=== PATIENT | female | born 1995 | race African-American/Black ===

== ENCOUNTER 2016-12-09 19:42 | Inpatient (IN) | payer SELFPAY ==
[~2016-12-09] VITALS: Ht 157.5 cm; Wt 53.5 kg
[2016-12-09] MEDS ORDERED: ONDANSETRON PF 4 MG/2 ML VIAL. IV ONE (21:30)
[2016-12-09] MEDS ORDERED: IV NORMAL SALINE 1000ML BAG 1,000 ML IV ONE (21:30)
--- NOTE | 2016-12-09 21:33 | ED.ADGEN ---
Past Medical History Past Medical History: No Pertinent History Past Surgical History: No Surgical History Alcohol Use: None Drug Use: None Adult General Chief Complaint Chief Complaint: DIZZY/LIGHT HEADED HPI HPI Patient is a 21 year old woman, who presents emergency department with multiple complaints. No significant past no history. Patient states that she began experiencing abdominal cramping today, located mostly in the middle of her abdomen, and thought that it was because she was going to begin her menses. She states she has been experiencing some white mucousy discharge for the past several days. Denies any sexual activity, or concern for STI exposures, any possibility of . Patient states that she began experiencing chills, nausea, has vomited "20 times", today. Food and fluid, no bile. Denies pain in the upper abdomen, denies diarrhea, denies sick contacts or exposures, denies injuries, denies any ingestions. Review of Systems Review of Systems Constitutional: Denies fever, complaining of chills. Eyes: Denies change in visual acuity. [] HENT: Denies nasal congestion or sore throat. [] Respiratory: Denies cough or shortness of breath. [] Cardiovascular: Denies chest pain or edema. [] GI: Cramping suprapubic abdominal and pelvic pain, associated nausea and vomiting, no diarrhea. : Denies dysuria. [] Musculoskeletal: Denies back pain or joint pain. [] Integument: Denies rash. [] Neurologic: Denies headache, focal weakness or sensory changes. [] Endocrine: Denies polyuria or polydipsia. [] Lymphatic: Denies swollen glands. [] Psychiatric: Denies depression or anxiety. [] Current Medications Current Medications Current Medications Medications (Trade) Dose Ordered Sig/Tala Start Time Stop Time Status Last Admin Dose Admin Fentanyl Citrate 25 mcg 25 mcg PRN Q15MIN PRN 12/09/16 21:30 12/10/16 21:29 12/10/16 01:11 25 MCG Info (Do NOT chart on this entry -- for MONITORING) 1 each PRN DAILY PRN 12/10/16 01:45 12/12/16 01:44 Iohexol (Omnipaque 300 Mg/ml) 75 ml 1X ONCE 12/10/16 01:45 12/10/16 01:46 DC 12/10/16 01:52 75 ML Ondansetron HCl (Zofran) 4 mg 1X ONCE 12/09/16 21:30 12/09/16 21:33 DC 12/09/16 21:47 4 MG Sodium Chloride (Iv Sodium Chloride 0.9% 1000ml Bag) 1,000 ml @ 1,000 mls/hr 1X ONCE 12/10/16 00:45 12/10/16 01:44 DC 12/10/16 01:10 1,000 MLS/HR Allergies Allergies Allergies Coded Allergies Type Severity Reaction Last Updated Verified No Known Drug Allergies 12/09/16 No Physical Exam Physical Exam Constitutional: Well developed, well nourished, mild distress secondary to discomfort, non-toxic appearance. [] HENT: Normocephalic, atraumatic, bilateral external ears normal, oropharynx moist, no oral exudates, nose normal. [] Eyes: PERRLA, EOMI, conjunctiva normal, no discharge. [] Neck: Normal range of motion, no tenderness, supple, no stridor. [] Cardiovascular:Heart rate regular rhythm, no murmur, S1, S2, rubs or gallops. [] Lungs & Thorax: Bilateral breath sounds clear to auscultation, no wheezing, rhonchi, rales. No chest wall tenderness or crepitus. [] Abdomen: Bowel sounds normal, soft, tenderness to palpation in the suprapubic region and right lower quadrant, no rebound, rigidity, no guarding, no masses, no pulsatile masses. [] Skin: Warm, dry, no erythema, no rash. [] Back: No tenderness, no CVA tenderness. [] Extremities: No tenderness, no cyanosis, no clubbing, ROM intact, no edema. [] Neurologic: Alert and oriented X 3, normal motor function, normal sensory function, no focal deficits noted. [] Psychologic: Affect normal, judgement normal, mood normal. [] Current Patient Data Vital Signs Vital Signs Date Time Temp Pulse Resp B/P Pulse Ox O2 Delivery O2 Flow Rate FiO2 12/10/16 01:11 16 12/09/16 20:00 99.0 72 140/72 100 Room Air 99.0 Lab Values Laboratory Tests Test 12/09/16 19:53 12/09/16 21:42 12/09/16 22:18 White Blood Count 8.9x10^3/uL (4.0-11.0) Red Blood Count 4.98x10^6/uL (3.50-5.40) Hemoglobin 12.8g/dL (12.0-15.5) Hematocrit 39.9% (36.0-47.0) Mean Corpuscular Volume 80fL (79-100) Mean Corpuscular Hemoglobin 26pg (25-35) Mean Corpuscular Hemoglobin Concent 32g/dL (31-37) Red Cell Distribution Width 14.5% (11.5-14.5) Platelet Count 256x10^3/uL (140-400) Neutrophils (%) (Auto) 89% (31-73) H Lymphocytes (%) (Auto) 9% (24-48) L Monocytes (%) (Auto) 2% (0-9) Eosinophils (%) (Auto) 0% (0-3) Basophils (%) (Auto) 0% (0-3) Neutrophils # (Auto) 8.0x10^3uL (1.8-7.7) H Lymphocytes # (Auto) 0.8x10^3/uL (1.0-4.8) L Monocytes # (Auto) 0.1x10^3/uL (0.0-1.1) Eosinophils # (Auto) 0.0x10^3/uL (0.0-0.7) Basophils # (Auto) 0.0x10^3/uL (0.0-0.2) Segmented Neutrophils % 85% (35-66) H Band Neutrophils % 6% (0-9) Lymphocytes % 7% (24-48) L Monocytes % 2% (0-10) Platelet Estimate Adequate (ADEQUATE) Poikilocytosis Slight Sodium Level 142mmol/L (136-145) Potassium Level 3.4mmol/L (3.5-5.1) L Chloride Level 104mmol/L (98-107) Carbon Dioxide Level 25mmol/L (21-32) Anion Gap 13 (6-14) Blood Urea Nitrogen 8mg/dL (7-20) Creatinine 0.7mg/dL (0.6-1.0) Estimated GFR (Cockcroft-Gault) 127.8 BUN/Creatinine Ratio 11 (6-20) Glucose Level 123mg/dL (70-99) H Calcium Level 9.7mg/dL (8.5-10.1) Total Bilirubin 0.6mg/dL (0.2-1.0) Aspartate Amino Transferase (AST) 27U/L (15-37) Alanine Aminotransferase (ALT) 67U/L (14-59) H Alkaline Phosphatase 67U/L (46-116) Total Protein 8.4g/dL (6.4-8.2) H Albumin 4.6g/dL (3.4-5.0) Albumin/Globulin Ratio 1.2 (1.0-1.7) Lipase 115U/L (73-393) Influenza Type A Antigen Negative (NEGATIVE) Influenza Type B Antigen Negative (NEGATIVE) Urine Collection Type Unknown Urine Color Yellow Urine Clarity Clear Urine pH 6.5 Urine Specific Truman 1.025 Urine Protein Negativemg/dL (NEG-TRACE) Urine Glucose (UA) Negativemg/dL (NEG) Urine Ketones (Stick) >=80mg/dL (NEG) Urine Blood Large (NEG) Urine Nitrite Negative (NEG) Urine Bilirubin Negative (NEG) Urine Urobilinogen Dipstick 0.2mg/dL (0.2 mg/dL) Urine Leukocyte Esterase Negative (NEG) Urine RBC 11-20/HPF (0-2) Urine WBC Occ/HPF (0-4) Urine Squamous Epithelial Cells Few/LPF Urine Amorphous Sediment Present/HPF Urine Bacteria Moderate/HPF (0-FEW) Urine Mucus Mod/LPF Urine Test Negative (NEG) Laboratory Tests 12/09/16 19:53 Laboratory Tests 12/09/16 19:53 Microbiology 12/09/16 Wet Prep - Final, Complete EKG EKG ECG: Rhythm strip: Sinus rhythm, heart rate 65 bpm, no ectopy. As interpreted by me. [] Radiology/Procedures Radiology/Procedures [] [facility] [address] [place] [address] IMAGING REPORT Signed PATIENT: QUOC HOROWITZ ACCOUNT: [id number] : 1995 LOCATION: ER AGE: 21 SEX: F EXAM STATUS: REG ER ORD. PHYSICIAN: JENN RODRIGUEZ DO REASON: abdominal pain/nausea/vomiting r/o appy PROCEDURE: ABDOMEN LTD PROCEDURE Limited abdominal ultrasound dated 12/09/2016. HISTORY Suprapubic pain for 1 day. TECHNIQUE Limited and imaging performed to localize the appendix. COMPARISON None. FINDINGS Sonographic imaging performed in the right lower quadrant in order to localize the appendix. The appendix is not clearly identified. No free fluid in the right lower quadrant. There is some pain with transducer pressure. There are few borderline enlarged lymph nodes in the ileocolic region. IMPRESSION - The appendix is not clearly identified. Appendicitis cannot be excluded based on this exam. - No free fluid or mass. There are few borderline enlarged lymph nodes in the ileocolic region, nonspecific. Electronically signed by: Gavin Cortes (Dec 10, 2016 00:21:31) DICTATED and SIGNED BY: GAVIN CORTES MD DATE: 12/10/16 002 CC: JENN RODRIGUEZ DO; NO PCP ~ Impressions: [facility] [address] [place] [address] IMAGING REPORT Signed PATIENT: QUOC HOROWITZ ACCOUNT: [id number] : 1995 LOCATION: ER AGE: 21 SEX: F EXAM STATUS: REG ER ORD. PHYSICIAN: JENN RODRIGUEZ DO REASON: abd pain/n/v PROCEDURE: ABD PELV W/ IV CONTRAST ONLY PROCEDURE CT abdomen and pelvis with contrast dated 12/10/2016. HISTORY Abdominal pain, nausea and vomiting. TECHNIQUE Contiguous axial imaging of the abdomen and pelvis performed after the administration of 75 cc Omnipaque 300.Exposure: One or more of the following individualized dose reduction techniques were utilized for this exam: 1. Automated exposure control. 2. Adjustment of the mA and/or kV according to patient size. 3. Use of iterative reconstruction technique. COMPARISON None. FINDINGS Limited images of lung bases are clear. Heart size within normal limits. No pleural or pericardial effusion. Liver, spleen, pancreas, adrenal glands, gallbladder and kidneys are unremarkable. No hydronephrosis. Unopacified GI tract normal in caliber and contour. The appendix is not clearly identified. No inflammatory stranding in the right lower quadrant. The no free fluid or lymphadenopathy. Abdominal aorta normal in caliber. Images of pelvis show nondistended urinary bladder. Uterus and adnexa unremarkable. Small amount of free pelvic fluid. No pelvic lymphadenopathy. Bone window show no acute findings. IMPRESSION - No acute abnormality of abdomen or pelvis. - The appendix is not clearly identified. No inflammatory stranding in the right lower quadrant. - Trace amount of free pelvic fluid, nonspecific. Electronically signed by: Gavin Cortes (Dec 10, 2016 02:01:33) Course & Med Decision Making Course & Med Decision Making Pertinent Labs and Imaging studies reviewed. (See chart for details) Patient with suprapubic and right lower quadrant region, having chills in the ED , uncomfortable in appearance. Received pain medication, IV fluids, antiemetics , a solution of vomiting. Pelvic examination performed. Patient did not have CMT , or concerning findings, she was noted to have clue cells. Due to persistent pain, with slight left shift and bandemia, ultrasound obtained, to evaluate pelvis and right lower quadrant for potential appendicitis. Unfortunately although patient tenderness in this area on examination, adequate visualization of the appendix not established. I did discuss this with the patient, who remains uncomfortable this time after multiple doses of medication, and is agreeable to proceeding with CT of abdomen and pelvis for further elucidation of her symptoms, after risk of radiation versus benefits discussed. CT abdomen and pelvis performed, but again was unable to adequately visualize the appendix , although no evidence of inflammation was noted in this region. Patient is known present in the emergency department for several hours, and has had repeat abdominal CT examination, she remains tender in the suprapubic region and right lower quadrant, although her symptoms may be due to a viral infection, or other non-surgical etiology, at this time due to persistent discomfort, and lab clarification on imaging, patient is agreeable plan for initial hospital for continued observation, and repeat abdominal evaluation. I did discuss findings as above with Dr. Perrin of internal medicine, patient accepted to his service as an observation admission with plan as above, consultation placed for Dr. Sands tunnel surgery. Dragon Disclaimer Dragon Disclaimer This electronic medical record was generated, in whole or in part, using a voice recognition dictation system. Departure Impression: Primary Impression: Abdominal pain Disposition: ADMITTED INPATIENT Admitting Physician: Jennifer Perrin Condition: IMPROVED JENN RODRIGUEZ DO Dec 09, 2016 21:32
[2016-12-09 21:35] LABS: BASO % 0 % (0-3); EOS % 0 % (0-3); HEMATOCRIT 39.9 % (36.0-47.0); HEMOGLOBIN 12.8 g/dL (12.0-15.5); LYMPH # 0.8 x10^3/uL (1.0-4.8); LYMPH % 9 % (24-48); MEAN CORPUSCULAR HEMOGLOBIN 26 pg (25-35); MEAN CORPUSCULAR HGB CONC 32 g/dL (31-37); MEAN CORPUSCULAR VOLUME 80 fL (79-100); MONO % 2 % (0-9); NEUT % 89 % (31-73); PLATELET COUNT 256 x10^3/uL (140-400); RED BLOOD COUNT 4.98 x10^6/uL (3.50-5.40); RED CELL DISTRIBUTION WIDTH 14.5 % (11.5-14.5); WHITE BLOOD COUNT 8.9 x10^3/uL (4.0-11.0)
[2016-12-09 21:42] LABS: CALCIUM 9.7 mg/dL (8.5-10.1); CREATININE 0.7 mg/dL (0.6-1.0); GFR 127.8; POTASSIUM 3.4 mmol/L (3.5-5.1)
[2016-12-09] MEDS: FENTANYL PF 100 MCG/2 ML VIAL. IV PRN (21:47)
[2016-12-09 21:48] LABS: ALBUMIN 4.6 g/dL (3.4-5.0); ALBUMIN/GLOBULIN RATIO 1.2 (1.0-1.7); TOTAL BILIRUBIN 0.6 mg/dL (0.2-1.0); TOTAL PROTEIN 8.4 g/dL (6.4-8.2)
[2016-12-09 21:55] LABS: PLT ESTIMATE ADEQUATE (ADEQUATE); POIKILOCYTOSIS SLIGHT
[2016-12-09 22:19] LABS: OBC FLU VALID
[2016-12-09 22:40] LABS: NEG OBC UR NEG; POS OBC UR POS
[2016-12-09 22:53] LABS: BILIRUBIN,URINE NEGATIVE (NEG); GLUCOSE,URINE NEGATIVE (NEG); NITRITE,URINE NEGATIVE (NEG); PH,URINE 6.5; PROTEIN,URINE NEGATIVE (NEG-TRACE); UROBILINOGEN,URINE 0.2 mg/dL (0.2 mg/dL)
[2016-12-09 23:10] LABS: BACTERIA,URINE MODERATE /HPF (0-FEW); SQUAMOUS EPITHELIAL CELL,UR FEW /LPF; WBC,URINE OCC /HPF (0-4)
--- NOTE | 2016-12-10 00:23 | RAD ---
PROCEDURE Limited abdominal ultrasound dated 12/09/2016. HISTORY Suprapubic pain for 1 day. TECHNIQUE Limited and imaging performed to localize the appendix. COMPARISON None. FINDINGS Sonographic imaging performed in the right lower quadrant in order to localize the appendix. The appendix is not clearly identified. No free fluid in the right lower quadrant. There is some pain with transducer pressure. There are few borderline enlarged lymph nodes in the ileocolic region. IMPRESSION - The appendix is not clearly identified. Appendicitis cannot be excluded based on this exam. - No free fluid or mass. There are few borderline enlarged lymph nodes in the ileocolic region, nonspecific. Electronically signed by: Gavin Cortes (Dec 10, 2016 00:21:31)
[2016-12-10] MEDS: FENTANYL PF 100 MCG/2 ML VIAL. IV PRN ×2 (00:35→01:11)
[2016-12-10] MEDS ORDERED: IV NORMAL SALINE 1000ML BAG 1,000 ML IV ONE (00:45)
[2016-12-10] MEDS ORDERED: CONTRAST GIVEN MC PRN (01:45)
[2016-12-10] MEDS ORDERED: IOHEXOL 300 MG/ML 75 ML VIAL IV ONE (01:45)
--- NOTE | 2016-12-10 02:03 | RAD ---
PROCEDURE CT abdomen and pelvis with contrast dated 12/10/2016. HISTORY Abdominal pain, nausea and vomiting. TECHNIQUE Contiguous axial imaging of the abdomen and pelvis performed after the administration of 75 cc Omnipaque 300.Exposure: One or more of the following individualized dose reduction techniques were utilized for this exam: 1. Automated exposure control. 2. Adjustment of the mA and/or kV according to patient size. 3. Use of iterative reconstruction technique. COMPARISON None. FINDINGS Limited images of lung bases are clear. Heart size within normal limits. No pleural or pericardial effusion. Liver, spleen, pancreas, adrenal glands, gallbladder and kidneys are unremarkable. No hydronephrosis. Unopacified GI tract normal in caliber and contour. The appendix is not clearly identified. No inflammatory stranding in the right lower quadrant. The no free fluid or lymphadenopathy. Abdominal aorta normal in caliber. Images of pelvis show nondistended urinary bladder. Uterus and adnexa unremarkable. Small amount of free pelvic fluid. No pelvic lymphadenopathy. Bone window show no acute findings. IMPRESSION - No acute abnormality of abdomen or pelvis. - The appendix is not clearly identified. No inflammatory stranding in the right lower quadrant. - Trace amount of free pelvic fluid, nonspecific. Electronically signed by: Gavin Cortes (Dec 10, 2016 02:01:33)
[2016-12-10] MEDS ORDERED: ONDANSETRON PF 4 MG/2 ML VIAL. IV PRN ×2 (03:15→08:56)
[2016-12-10] MEDS ORDERED: KETOROLAC 15 MG/ML VIAL. IV PRN ×2 (03:15→09:00)
[2016-12-10] MEDS ORDERED: ACETAMINOPHEN 325 MG TABLET. PO PRN (03:15)
[2016-12-10 04:07] VITALS: BP 109/61
[2016-12-10] MEDS: MORPHINE SULFATE 4 MG/ML DISP.SYRIN. IV PRN ×2 (04:45→20:15)
--- NOTE | 2016-12-10 04:51 | ACF ---
Admission Forms Criteria ABDOMINAL PAIN Clinical Indications for Admission to Inpatient Care (Place 'X' for any and all applicable criteria): Admission is indicated for ANY ONE of the following(1)(2)(3)(4)(5): [X]I. Inpatient admission required rather than observation care (Also use Abdominal Pain: Observation Care, as appropriate) because of ANY ONE of the following: [ ]a) Severe pain requiring acute inpatient management [X]b) Identification of etiology/finding that requires inpatient care (eg, aortic dissection, free air) [ ]c) Absent bowel sounds with complete ileus(6) [ ]d) Suspected toxic megacolon [ ]e) Severe electrolyte abnormalities requiring inpatient care [ ]f) High fever or infection requiring inpatient admission as indicated by ANY ONE of following(7)(8): [ ] i) Appropriate outpatient or observational care antimicrobial treatment unavailable, not effective, or not feasible [ ] ii) Documented bacteremia [ ] iii) Temperature > 104.9 degrees F (oral) [ ] iv) T >103.1 F (oral) or < 96.8 F(rectal) that does not respond to all emergency treatment measures [ ]g) Signs of intestinal obstruction [B] [ ]h) Hemodynamic instability [ ]i) IV fluid to replace significant ongoing losses (greater than 3 L/m2 per day) (12)(13) [ ]j) Percutaneous or open drainage (eg, abscess, biliary tract ) procedures [ ]k) Parenteral nutrition regimen that must be implemented on inpatient basis [ ]l) Other condition,treatment or monitoring requiring inpatient admission. [ ]II. Peritoneal signs present [ ]III. Surgery needed that cannot be performed on an ambulatory basis. [ ]IV. Evaluation requires patient to not eat or drink for extended period ( eg, more than 24 hours). [ ]V. Contraindications and/or Inappropriate clinical situations for Observational Care in patients with abdominal pain, when ANY ONE of the following is required: [ ]a) Thorough evaluation is required to prevent catastrophic events due to delays in diagnosing (e.g.Mesenteric ischemia) 1,3 [ ]b) Patient with severe pathology or with chronic symptoms unlikely to improve in the ED stay (3) [ ]. General contraindications and/or Inappropriate clinical situations for Observational Care in patients with abdominal pain, when ANY ONE of the following is required: [ ]a) Prediction of prolongation of LOS based on ANY ONE of the following may be considered as a contraindication for observational care 2, 3, 4, 5, 6, 7, 8, 9, 10, 11 [ ]i) Age > 65 yrs. [ ]ii) Patient arriving by ambulance [ ]iii) Patient with high acuity [ ]iv) Patient requiring vital sign monitoring [ ]v) Patient on IV medication [ ]b) Systolic blood pressures 180mmHg 3,12 [ ]c) Patient with altered mental status including delirium and other alteration of consciousness, (3) [ ]d) Patient whose discharge disposition will be to a long term home or rehabilitation home should not be managed in Emergency Department Observation Unit. CMS rule requires 3 days hospital stay before such placement.3,13 [ ]e) Patient with failure to thrive due to broad array of etiologies 3,16,17 [ ]f) Inability to ambulate 3,14 Extended stay beyond goal length of stay may be needed for(2)(3): [ ]a) Persistent abdominal pain with suspected intra-abdominal process [ ]b) Diagnosed condition requiring continued stay (e.g., pancreatitis, complicated diverticulitis) [ ]c) Surgery (e.g., colectomy) The original [facility] content created by [employer] has been revised. The portions of the content which have been revised are identified through the use of italic text or in bold, and [facility] has neither reviewed nor approved the modified material.All other unmodified content is copyright [facility]. Please see references footnoted in the original [facility] edition 2016 Admission Criteria Met?: Yes MAXWELL BARRERA Dec 10, 2016 04:51
[2016-12-10 07:00] VITALS: BP 104/64
[2016-12-10] MEDS ORDERED: POTASSIUM CHLORIDE 20MEQ 50 ML IV ONE (09:00)
[2016-12-10] MEDS ORDERED: FENTANYL PF 100 MCG/2 ML VIAL. IV PRN (09:00)
[2016-12-10 10:46] VITALS: BP 97/69
[2016-12-10] MEDS: IV NORMAL SALINE 1000ML BAG 1,000 ML IV SCH ×2 (12:12→17:38)
[2016-12-10] MEDS: METRONIDAZOLE 500mg PREMIX 100 ML IV SCH ×2 (12:12→20:39)
--- NOTE | 2016-12-10 12:28 | PDOC1 ---
History and Physical Date of Admission Date of Admission DATE: 12/10/16 TIME: 12:21 Identification/Chief Complaint Chief Complaint abd pain Source Source: Caregiver, Chart review, Patient History of Present Illness History of Present Illness 21 y.o AA female, no past medical, acute onset lower abd pain and also motions to her R side, though she was having her period, never happened before. Accompanied by emesis, no fevers, no change in BM CT and US shows non full visualization of appendix but could be early appy? ALso clue cells on UA...or vag swab?, asymptomatic, no pruritus, dysuria GS consulted PAin more tolerable HAs been NPO LAst pain med was 7 hrs ago Past Medical History Cardiovascular: No pertinent hx Pulmonary: No pertinent hx GI: No pertinent hx Heme/Onc: No pertinent hx Hepatobiliary: No pertinent hx Psych: No pertinent hx Rheumatologic: No pertinent hx Infectious disease: No pertinent hx ENT: No pertinent hx Renal/: No pertinent hx Endocrine: No pertinent hx Dermatology: No pertinent hx Past Surgical History Past Surgical History: No pertinent history Family History Family History: No Significant Social History Smoke: No ALCOHOL: none Drugs: None Current Problem List Problem List Problems Medical Problems: (1) Abdominal pain Status: Acute Problems: Current Medications Current Medications Current Medications Sodium Chloride (Iv Sodium Chloride 0.9% 1000ml Bag) 1,000 ml @ 1,000 mls/hr 1X ONCE IV Last administered on 12/09/16 21:20; Start 12/09/16 at 21:30; Stop 12/09/16 at 22:29; Status DC Ondansetron HCl (Zofran) 4 mg 1X ONCE IV Last administered on 12/09/16 21:47; Start 12/09/16 at 21:30; Stop 12/09/16 at 21:33; Status DC Fentanyl Citrate 25 mcg 25 mcg PRN Q15MIN PRN IV PAIN GREATER THAN 3/10 Last administered on 12/10/16 01:11; Start 12/09/16 at 21:30; Stop 12/10/16 at 08:58; Status DC Sodium Chloride (Iv Sodium Chloride 0.9% 1000ml Bag) 1,000 ml @ 1,000 mls/hr 1X ONCE IV Last administered on 12/10/16 01:10; Start 12/10/16 at 00:45; Stop 12/10/16 at 01:44; Status DC Iohexol (Omnipaque 300 Mg/ml) 75 ml 1X ONCE IV Last administered on 12/10/16 01:52; Start 12/10/16 at 01:45; Stop 12/10/16 at 01:46; Status DC Info (Do NOT chart on this entry -- for MONITORING) 1 each PRN DAILY PRN MC SEE COMMENTS; Start 12/10/16 at 01:45; Stop 12/12/16 at 01:44 Ondansetron HCl (Zofran) 4 mg PRN Q8HRS PRN IV NAUSEA/VOMITING; Start 12/10/16 at 03:15; Stop 12/10/16 at 08:58; Status DC Morphine Sulfate 4 mg PRN Q2HR PRN IV PAIN Last administered on 12/10/16 04:45 ; Start 12/10/16 at 03:15; Stop 12/11/16 at 03:14 Acetaminophen (Tylenol) 650 mg PRN Q4HRS PRN PO FEVER; Start 12/10/16 at 03:15; Stop 12/11/16 at 03:14 Ketorolac Tromethamine (Toradol) 10 mg PRN Q6HRS PRN IV PAIN; Start 12/10/16 at 03:15; Stop 12/10/16 at 08:58; Status DC Metronidazole (Metrogel) 1 ashly QHS VG ; Start 12/10/16 at 21:00; Stop 12/10/16 at 21:00; Status DC Ketorolac Tromethamine (Toradol) 30 mg PRN Q6HRS PRN IV PAIN; Start 12/10/16 at 09:00; Stop 12/15/16 at 08:59 Ondansetron HCl 4 mg 4 mg PRN Q6HRS PRN IV NAUSEA/VOMITING; Start 12/10/16 at 08 :56 Metronidazole (FLAGYL 500Mmg PREMIX) 100 ml @ 100 mls/hr BID IV ; Start at 09:00 Fentanyl Citrate 50 mcg 50 mcg PRN Q2HR PRN IV PAIN; Start 12/10/16 at 09:00 Potassium Chloride 50 ml @ 50 mls/hr 1X ONCE IV ; Start 12/10/16 at 09:00; Stop 12/10/16 at 09:30; Status DC Sodium Chloride 1,000 ml @ 100 mls/hr Q10H IV ; Start 12/10/16 at 09:00 Potassium Chloride (KCl Premix 10meq) 100 ml @ 100 mls/hr Q1H IV ; Start at 09:30; Stop 12/10/16 at 11:29; Status DC Allergies Allergies: Coded Allergies: No Known Drug Allergies (Unverified , 12/09/16) ROS General: No: Appetite, Chills, Fatigue, Malaise, Night Sweats, Other PSYCHOLOGICAL ROS: No: Anxiety, Behavioral Disorder, Concentration difficultie , Decreased libido, Depression, Disorientation, Hallucinations, Hostility, Irritablity, Memory difficulties, Mood Swings, Obsessive thoughts, Other, Physical abuse, Sexual abuse, Sleep disturbances, Suicidal ideation Eyes: No Blurry vision, No Decreased vision, No Double vision, No Dry eyes, No Excessive tearing, No Eye Pain, No Itchy Eyes, No Loss of vision, No Other, No Photophobia, No Scotomata, No Uses contacts, No Uses glasses HEENT: No: Epistaxis, Heacaches, Hearing change, Nasal congestion, Nasal discharge, Oral lesions, Other, Sinus pain, Sneezing, Snoring, Sore Throat, Tinnitus, Vertigo, Visual Changes, Vocal changes Hematological and Lymphatic: No: Bleeding Problems, Blood Clots, Blood Transfusions, Brusing, Night Sweats, Other, Pallor, Swollen Lymph Nodes ENDOCRINE: No: Breast Changes, Galactorrhea, Hair Pattern Changes, Hot Flashes , Malaise/lethargy, Mood Swings, Other, Palpitations, Polydipsia/polyuria, Skin Changes, Temperature Intolerance, Unexpected Weight Changes Breast: No New/Changing Breast Lumps, No Nipple changes, No Nipple discharge, No Other Respiratory: No: Cough, Hemoptysis, Orthopnea, Other, Pleuritic Pain, SOB with excertion, Shortness of breath, Sputum Changes, Stridor, Tachypnea, Wheezing Cardiovascular: No Chest Pain, No Edema, No Lt Headedness, No Orthopnea, No Other, No Palpitations, No Paroxysmal Noc. Dyspnea Gastrointestinal: Yes Abdominal Pain, Yes Nausea, Yes Vomiting Genitourinary: No , No , No , No , No , No , No , No Discharge, No Dysuria, No Flank Pain, No Frequency, No Hematuria, No Incontinence, No Other, No Pain, No Retention, No Urgency Musculoskeletal: No Gait Disturbance, No Joint Pain, No Joint Stiffness, No Joint Swelling, No Muscle Pain, No Muscular Weakness, No Other, No Pain In:, No Swelling In: Neurological: No Behavorial Changes, No Bowel/Bladder ControlChng, No Confusion , No Dizziness, No Gait Disturbance, No Headaches, No Impaired Coord/balance, No Memory Loss, No Numbness/Tingling, No Other, No Seizures, No Speech Problems , No Tremors, No Visual Changes, No Weakness Skin: No Acne, No Dry Skin, No Eczema, No Hair Changes, No Lumps, No Mole Changes, No Mottling, No Nail Changes, No Other, No Pruritus, No Rash, No Skin Lesion Changes Physical Exam General: Alert, Oriented X3, Cooperative, No acute distress HEENT: PERRLA Lungs: Clear to auscultation, Normal air movement Heart: S1S2, RRR, no thrills, no rubs Cardiovascular: S1, S2 Breasts: Normal, Rt breast nml w/o mass, Lt breast nml w/o mass, Nipples normal Abdomen: Soft, Other (veryv mild tenderness, R side on deep palp) Male Genitals Exam: normal genitalia Rectal Exam: not examined PELVIC: Nml ext genitalia Extremities: No clubbing, No cyanosis, No edema, Normal pulses, No tenderness/ swelling Skin: No rashes, No breakdown, No significant lesion Neuro: Normal gait, Normal speech, Strength at 5/5 X4 ext, Normal tone, Sensation intact, Cranial nerves 3-12 NL, Reflexes 2+ Psych/Mental Status: Mental status NL, Mood NL Vitals Vitals Vital Signs Date Time Temp Pulse Resp B/P Pulse Ox O2 Delivery O2 Flow Rate FiO2 12/10/16 10:46 97.9 63 18 97/69 98 Room Air 97.9 Labs Labs Laboratory Tests Test 12/09/16 19:53 12/09/16 21:42 12/09/16 22:18 White Blood Count 8.9x10^3/uL (4.0-11.0) Red Blood Count 4.98x10^6/uL (3.50-5.40) Hemoglobin 12.8g/dL (12.0-15.5) Hematocrit 39.9% (36.0-47.0) Mean Corpuscular Volume 80fL (79-100) Mean Corpuscular Hemoglobin 26pg (25-35) Mean Corpuscular Hemoglobin Concent 32g/dL (31-37) Red Cell Distribution Width 14.5% (11.5-14.5) Platelet Count 256x10^3/uL (140-400) Neutrophils (%) (Auto) 89% (31-73) Lymphocytes (%) (Auto) 9% (24-48) Monocytes (%) (Auto) 2% (0-9) Eosinophils (%) (Auto) 0% (0-3) Basophils (%) (Auto) 0% (0-3) Neutrophils # (Auto) 8.0x10^3uL (1.8-7.7) Lymphocytes # (Auto) 0.8x10^3/uL (1.0-4.8) Monocytes # (Auto) 0.1x10^3/uL (0.0-1.1) Eosinophils # (Auto) 0.0x10^3/uL (0.0-0.7) Basophils # (Auto) 0.0x10^3/uL (0.0-0.2) Segmented Neutrophils % 85% (35-66) Band Neutrophils % 6% (0-9) Lymphocytes % 7% (24-48) Monocytes % 2% (0-10) Platelet Estimate Adequate (ADEQUATE) Poikilocytosis Slight Sodium Level 142mmol/L (136-145) Potassium Level 3.4mmol/L (3.5-5.1) Chloride Level 104mmol/L (98-107) Carbon Dioxide Level 25mmol/L (21-32) Anion Gap 13 (6-14) Blood Urea Nitrogen 8mg/dL (7-20) Creatinine 0.7mg/dL (0.6-1.0) Estimated GFR (Cockcroft-Gault) 127.8 BUN/Creatinine Ratio 11 (6-20) Glucose Level 123mg/dL (70-99) Calcium Level 9.7mg/dL (8.5-10.1) Total Bilirubin 0.6mg/dL (0.2-1.0) Aspartate Amino Transf (AST/SGOT) 27U/L (15-37) Alanine Aminotransferase (ALT/SGPT) 67U/L (14-59) Alkaline Phosphatase 67U/L (46-116) Total Protein 8.4g/dL (6.4-8.2) Albumin 4.6g/dL (3.4-5.0) Albumin/Globulin Ratio 1.2 (1.0-1.7) Lipase 115U/L (73-393) Influenza Type A Antigen Negative (NEGATIVE) Influenza Type B Antigen Negative (NEGATIVE) Urine Collection Type Unknown Urine Color Yellow Urine Clarity Clear Urine pH 6.5 Urine Specific [place] 1.025 Urine Protein Negativemg/dL (NEG-TRACE) Urine Glucose (UA) Negativemg/dL (NEG) Urine Ketones (Stick) >=80mg/dL (NEG) Urine Blood Large (NEG) Urine Nitrite Negative (NEG) Urine Bilirubin Negative (NEG) Urine Urobilinogen Dipstick 0.2mg/dL (0.2 mg/dL) Urine Leukocyte Esterase Negative (NEG) Urine RBC 11-20/HPF (0-2) Urine WBC Occ/HPF (0-4) Urine Squamous Epithelial Cells Few/LPF Urine Amorphous Sediment Present/HPF Urine Bacteria Moderate/HPF (0-FEW) Urine Mucus Mod/LPF Urine Test Negative (NEG) Laboratory Tests Test 12/09/16 19:53 12/09/16 21:42 12/09/16 22:18 White Blood Count 8.9x10^3/uL (4.0-11.0) Red Blood Count 4.98x10^6/uL (3.50-5.40) Hemoglobin 12.8g/dL (12.0-15.5) Hematocrit 39.9% (36.0-47.0) Mean Corpuscular Volume 80fL (79-100) Mean Corpuscular Hemoglobin 26pg (25-35) Mean Corpuscular Hemoglobin Concent 32g/dL (31-37) Red Cell Distribution Width 14.5% (11.5-14.5) Platelet Count 256x10^3/uL (140-400) Neutrophils (%) (Auto) 89% (31-73) Lymphocytes (%) (Auto) 9% (24-48) Monocytes (%) (Auto) 2% (0-9) Eosinophils (%) (Auto) 0% (0-3) Basophils (%) (Auto) 0% (0-3) Neutrophils # (Auto) 8.0x10^3uL (1.8-7.7) Lymphocytes # (Auto) 0.8x10^3/uL (1.0-4.8) Monocytes # (Auto) 0.1x10^3/uL (0.0-1.1) Eosinophils # (Auto) 0.0x10^3/uL (0.0-0.7) Basophils # (Auto) 0.0x10^3/uL (0.0-0.2) Segmented Neutrophils % 85% (35-66) Band Neutrophils % 6% (0-9) Lymphocytes % 7% (24-48) Monocytes % 2% (0-10) Platelet Estimate Adequate (ADEQUATE) Poikilocytosis Slight Sodium Level 142mmol/L (136-145) Potassium Level 3.4mmol/L (3.5-5.1) Chloride Level 104mmol/L (98-107) Carbon Dioxide Level 25mmol/L (21-32) Anion Gap 13 (6-14) Blood Urea Nitrogen 8mg/dL (7-20) Creatinine 0.7mg/dL (0.6-1.0) Estimated GFR (Cockcroft-Gault) 127.8 BUN/Creatinine Ratio 11 (6-20) Glucose Level 123mg/dL (70-99) Calcium Level 9.7mg/dL (8.5-10.1) Total Bilirubin 0.6mg/dL (0.2-1.0) Aspartate Amino Transf (AST/SGOT) 27U/L (15-37) Alanine Aminotransferase (ALT/SGPT) 67U/L (14-59) Alkaline Phosphatase 67U/L (46-116) Total Protein 8.4g/dL (6.4-8.2) Albumin 4.6g/dL (3.4-5.0) Albumin/Globulin Ratio 1.2 (1.0-1.7) Lipase 115U/L (73-393) Influenza Type A Antigen Negative (NEGATIVE) Influenza Type B Antigen Negative (NEGATIVE) Urine Collection Type Unknown Urine Color Yellow Urine Clarity Clear Urine pH 6.5 Urine Specific [place] 1.025 Urine Protein Negativemg/dL (NEG-TRACE) Urine Glucose (UA) Negativemg/dL (NEG) Urine Ketones (Stick) >=80mg/dL (NEG) Urine Blood Large (NEG) Urine Nitrite Negative (NEG) Urine Bilirubin Negative (NEG) Urine Urobilinogen Dipstick 0.2mg/dL (0.2 mg/dL) Urine Leukocyte Esterase Negative (NEG) Urine RBC 11-20/HPF (0-2) Urine WBC Occ/HPF (0-4) Urine Squamous Epithelial Cells Few/LPF Urine Amorphous Sediment Present/HPF Urine Bacteria Moderate/HPF (0-FEW) Urine Mucus Mod/LPF Urine Test Negative (NEG) VTE Prophylaxis Ordered VTE Prophylaxis Devices: Yes VTE Pharmacological Prophylaxi: Yes Assessment/Plan Assessment/Plan 1. Abdominal pain, difftls include possibly early appy? 2. Emesis 3/ Bacterial vaginosis, incidental Plan: Await GS NPO, IVF Flagyl 500 BID x 7 days Dw pt and RN RAD CONTRERAS MD Dec 10, 2016 12:27
--- NOTE | 2016-12-10 12:29 | PDOC2 ---
OSCAR DAIGLE CAREER DEVELOPMENT FACILITATOR 12/10/16 1229: CONSULT Date of Consult Date of Consult DATE: 12/10/16 TIME: 12:20 Reason for Consult Reason for Consult: abdominal pain Referring Physician Referring Physician: ER Identification/Chief Complaint Chief Complaint abdominal pain Source Source: Chart review, Patient History of Present Illness Reason for Visit: Started menstruation12/08, yesterday AM started having abdominal cramps. Awoke from nap with severe pain, umbilical/right lower abdomen and vomiting. The vomiting continued and she had 3 episodes of diarrhea. She was unable to keep anything down. She had body aches. Aggravated by movement, alleviated by laying on back. No sick contacts, no similar symptoms in past. She was very weak and dizzy which prompted her to come in . Today pain is still there, although much improved from yesterday. No further emesis or diarrhea Past Medical History Past Medical History no hx Past Surgical History Past Surgical History: No pertinent history Family History Family History: Other (noncontributory to current illness ) Social History No ALCOHOL: none Drugs: None Lives: Alone Current Problem List Problem List Problems Medical Problems: (1) Abdominal pain Status: Acute Current Medications Current Medications Current Medications Sodium Chloride (Iv Sodium Chloride 0.9% 1000ml Bag) 1,000 ml @ 1,000 mls/hr 1X ONCE IV Last administered on 12/09/16 21:20; Start 12/09/16 at 21:30; Stop 12/09/16 at 22:29; Status DC Ondansetron HCl (Zofran) 4 mg 1X ONCE IV Last administered on 12/09/16 21:47; Start 12/09/16 at 21:30; Stop 12/09/16 at 21:33; Status DC Fentanyl Citrate 25 mcg 25 mcg PRN Q15MIN PRN IV PAIN GREATER THAN 3/10 Last administered on 12/10/16 01:11; Start 12/09/16 at 21:30; Stop 12/10/16 at 08:58; Status DC Sodium Chloride (Iv Sodium Chloride 0.9% 1000ml Bag) 1,000 ml @ 1,000 mls/hr 1X ONCE IV Last administered on 12/10/16 01:10; Start 12/10/16 at 00:45; Stop 12/10/16 at 01:44; Status DC Iohexol (Omnipaque 300 Mg/ml) 75 ml 1X ONCE IV Last administered on 12/10/16 01:52; Start 12/10/16 at 01:45; Stop 12/10/16 at 01:46; Status DC Info (Do NOT chart on this entry -- for MONITORING) 1 each PRN DAILY PRN MC SEE COMMENTS; Start 12/10/16 at 01:45; Stop 12/12/16 at 01:44 Ondansetron HCl (Zofran) 4 mg PRN Q8HRS PRN IV NAUSEA/VOMITING; Start 12/10/16 at 03:15; Stop 12/10/16 at 08:58; Status DC Morphine Sulfate 4 mg PRN Q2HR PRN IV PAIN Last administered on 12/10/16 04:45 ; Start 12/10/16 at 03:15; Stop 12/11/16 at 03:14 Acetaminophen (Tylenol) 650 mg PRN Q4HRS PRN PO FEVER; Start 12/10/16 at 03:15; Stop 12/11/16 at 03:14 Ketorolac Tromethamine (Toradol) 10 mg PRN Q6HRS PRN IV PAIN; Start 12/10/16 at 03:15; Stop 12/10/16 at 08:58; Status DC Metronidazole (Metrogel) 1 ashly QHS VG ; Start 12/10/16 at 21:00; Stop 12/10/16 at 21:00; Status DC Ketorolac Tromethamine (Toradol) 30 mg PRN Q6HRS PRN IV PAIN; Start 12/10/16 at 09:00; Stop 12/15/16 at 08:59 Ondansetron HCl 4 mg 4 mg PRN Q6HRS PRN IV NAUSEA/VOMITING; Start 12/10/16 at 08 :56 Metronidazole (FLAGYL 500Mmg PREMIX) 100 ml @ 100 mls/hr BID IV Last administered on 12/10/16 12:12; Start 12/10/16 at 09:00 Fentanyl Citrate 50 mcg 50 mcg PRN Q2HR PRN IV PAIN; Start 12/10/16 at 09:00 Potassium Chloride 50 ml @ 50 mls/hr 1X ONCE IV ; Start 12/10/16 at 09:00; Stop 12/10/16 at 09:30; Status DC Sodium Chloride 1,000 ml @ 100 mls/hr Q10H IV Last administered on 12/10/16t 12 :12; Start 12/10/16 at 09:00 Potassium Chloride (KCl Premix 10meq) 100 ml @ 100 mls/hr Q1H IV ; Start at 09:30; Stop 12/10/16 at 11:29; Status DC Allergies Allergies: Coded Allergies: No Known Drug Allergies (Unverified , 12/09/16) ROS General: YES: Chills, Other (sweats, body aches) PSYCHOLOGICAL ROS: No: Anxiety, Depression Eyes: No Blurry vision, No Double vision HEENT: No: Heacaches, Sore Throat Hematological and Lymphatic: No: Bleeding Problems Respiratory: No: Cough, Shortness of breath Cardiovascular: No Chest Pain, No Palpitations Gastrointestinal: Yes Other (see hpi) Genitourinary: No Dysuria, No Hematuria Musculoskeletal: Yes Joint Pain, Yes Muscle Pain Neurological: No Confusion, No Impaired Coord/balance Skin: No Pruritus, No Rash Physical Exam General: Alert, Oriented X3, Cooperative, No acute distress HEENT: PERRLA, Mucous membr. moist/pink Lungs: Clear to auscultation, Normal air movement Heart: Regular rate, Normal S1, Normal S2, No murmurs Abdomen: Soft, Other (ND, mild tenderness to LLQ, suprapubic area and RLQ, no guarding or rebound on exam) Extremities: No clubbing, No cyanosis Skin: No rashes, No breakdown Neuro: Normal gait, Normal speech Psych/Mental Status: Mental status NL, Mood NL MUSCULOSKELETAL: No deformity, No swelling Vitals VITALS Vital Signs Date Time Temp Pulse Resp B/P Pulse Ox O2 Delivery O2 Flow Rate FiO2 12/10/16 10:46 97.9 63 18 97/69 98 Room Air 97.9 Labs Labs Laboratory Tests Test 12/09/16 19:53 12/09/16 21:42 12/09/16 22:18 White Blood Count 8.9x10^3/uL (4.0-11.0) Red Blood Count 4.98x10^6/uL (3.50-5.40) Hemoglobin 12.8g/dL (12.0-15.5) Hematocrit 39.9% (36.0-47.0) Mean Corpuscular Volume 80fL (79-100) Mean Corpuscular Hemoglobin 26pg (25-35) Mean Corpuscular Hemoglobin Concent 32g/dL (31-37) Red Cell Distribution Width 14.5% (11.5-14.5) Platelet Count 256x10^3/uL (140-400) Neutrophils (%) (Auto) 89% (31-73) Lymphocytes (%) (Auto) 9% (24-48) Monocytes (%) (Auto) 2% (0-9) Eosinophils (%) (Auto) 0% (0-3) Basophils (%) (Auto) 0% (0-3) Neutrophils # (Auto) 8.0x10^3uL (1.8-7.7) Lymphocytes # (Auto) 0.8x10^3/uL (1.0-4.8) Monocytes # (Auto) 0.1x10^3/uL (0.0-1.1) Eosinophils # (Auto) 0.0x10^3/uL (0.0-0.7) Basophils # (Auto) 0.0x10^3/uL (0.0-0.2) Segmented Neutrophils % 85% (35-66) Band Neutrophils % 6% (0-9) Lymphocytes % 7% (24-48) Monocytes % 2% (0-10) Platelet Estimate Adequate (ADEQUATE) Poikilocytosis Slight Sodium Level 142mmol/L (136-145) Potassium Level 3.4mmol/L (3.5-5.1) Chloride Level 104mmol/L (98-107) Carbon Dioxide Level 25mmol/L (21-32) Anion Gap 13 (6-14) Blood Urea Nitrogen 8mg/dL (7-20) Creatinine 0.7mg/dL (0.6-1.0) Estimated GFR (Cockcroft-Gault) 127.8 BUN/Creatinine Ratio 11 (6-20) Glucose Level 123mg/dL (70-99) Calcium Level 9.7mg/dL (8.5-10.1) Total Bilirubin 0.6mg/dL (0.2-1.0) Aspartate Amino Transf (AST/SGOT) 27U/L (15-37) Alanine Aminotransferase (ALT/SGPT) 67U/L (14-59) Alkaline Phosphatase 67U/L (46-116) Total Protein 8.4g/dL (6.4-8.2) Albumin 4.6g/dL (3.4-5.0) Albumin/Globulin Ratio 1.2 (1.0-1.7) Lipase 115U/L (73-393) Influenza Type A Antigen Negative (NEGATIVE) Influenza Type B Antigen Negative (NEGATIVE) Urine Collection Type Unknown Urine Color Yellow Urine Clarity Clear Urine pH 6.5 Urine Specific [place] 1.025 Urine Protein Negativemg/dL (NEG-TRACE) Urine Glucose (UA) Negativemg/dL (NEG) Urine Ketones (Stick) >=80mg/dL (NEG) Urine Blood Large (NEG) Urine Nitrite Negative (NEG) Urine Bilirubin Negative (NEG) Urine Urobilinogen Dipstick 0.2mg/dL (0.2 mg/dL) Urine Leukocyte Esterase Negative (NEG) Urine RBC 11-20/HPF (0-2) Urine WBC Occ/HPF (0-4) Urine Squamous Epithelial Cells Few/LPF Urine Amorphous Sediment Present/HPF Urine Bacteria Moderate/HPF (0-FEW) Urine Mucus Mod/LPF Urine Test Negative (NEG) Laboratory Tests Test 12/09/16 19:53 12/09/16 21:42 12/09/16 22:18 White Blood Count 8.9x10^3/uL (4.0-11.0) Red Blood Count 4.98x10^6/uL (3.50-5.40) Hemoglobin 12.8g/dL (12.0-15.5) Hematocrit 39.9% (36.0-47.0) Mean Corpuscular Volume 80fL (79-100) Mean Corpuscular Hemoglobin 26pg (25-35) Mean Corpuscular Hemoglobin Concent 32g/dL (31-37) Red Cell Distribution Width 14.5% (11.5-14.5) Platelet Count 256x10^3/uL (140-400) Neutrophils (%) (Auto) 89% (31-73) Lymphocytes (%) (Auto) 9% (24-48) Monocytes (%) (Auto) 2% (0-9) Eosinophils (%) (Auto) 0% (0-3) Basophils (%) (Auto) 0% (0-3) Neutrophils # (Auto) 8.0x10^3uL (1.8-7.7) Lymphocytes # (Auto) 0.8x10^3/uL (1.0-4.8) Monocytes # (Auto) 0.1x10^3/uL (0.0-1.1) Eosinophils # (Auto) 0.0x10^3/uL (0.0-0.7) Basophils # (Auto) 0.0x10^3/uL (0.0-0.2) Segmented Neutrophils % 85% (35-66) Band Neutrophils % 6% (0-9) Lymphocytes % 7% (24-48) Monocytes % 2% (0-10) Platelet Estimate Adequate (ADEQUATE) Poikilocytosis Slight Sodium Level 142mmol/L (136-145) Potassium Level 3.4mmol/L (3.5-5.1) Chloride Level 104mmol/L (98-107) Carbon Dioxide Level 25mmol/L (21-32) Anion Gap 13 (6-14) Blood Urea Nitrogen 8mg/dL (7-20) Creatinine 0.7mg/dL (0.6-1.0) Estimated GFR (Cockcroft-Gault) 127.8 BUN/Creatinine Ratio 11 (6-20) Glucose Level 123mg/dL (70-99) Calcium Level 9.7mg/dL (8.5-10.1) Total Bilirubin 0.6mg/dL (0.2-1.0) Aspartate Amino Transf (AST/SGOT) 27U/L (15-37) Alanine Aminotransferase (ALT/SGPT) 67U/L (14-59) Alkaline Phosphatase 67U/L (46-116) Total Protein 8.4g/dL (6.4-8.2) Albumin 4.6g/dL (3.4-5.0) Albumin/Globulin Ratio 1.2 (1.0-1.7) Lipase 115U/L (73-393) Influenza Type A Antigen Negative (NEGATIVE) Influenza Type B Antigen Negative (NEGATIVE) Urine Collection Type Unknown Urine Color Yellow Urine Clarity Clear Urine pH 6.5 Urine Specific [place] 1.025 Urine Protein Negativemg/dL (NEG-TRACE) Urine Glucose (UA) Negativemg/dL (NEG) Urine Ketones (Stick) >=80mg/dL (NEG) Urine Blood Large (NEG) Urine Nitrite Negative (NEG) Urine Bilirubin Negative (NEG) Urine Urobilinogen Dipstick 0.2mg/dL (0.2 mg/dL) Urine Leukocyte Esterase Negative (NEG) Urine RBC 11-20/HPF (0-2) Urine WBC Occ/HPF (0-4) Urine Squamous Epithelial Cells Few/LPF Urine Amorphous Sediment Present/HPF Urine Bacteria Moderate/HPF (0-FEW) Urine Mucus Mod/LPF Urine Test Negative (NEG) Assessment/Plan Assessment/Plan abdominal pain, vomiting, diarrhea seems more c/w acute gastroenteritis--pain is improved today, although still present, diffuse across lower abdomen keep NPO, will review with JONATHAN Burnham MD 12/10/16 1501: CONSULT Allergies Allergies: Coded Allergies: No Known Drug Allergies (Unverified , 12/09/16) Assessment/Plan Assessment/Plan addendum i saw and examined her. i repeated [place] parts of the consult. her pain is much better, nearly resolved. no n/v now. is very hungry appears well abd soft nd min tender along right side of abdomen--no specific focal area of tenderness a/p abd pain, etiology unclear. doubt appendicitis given the normal imaging, normal wbc, and rapid improvement of symptoms. soft diet. OSCAR DAIGLE APRN Dec 10, 2016 12:29 JONATHAN SOLIMAN MD Dec 10, 2016 15:01
[2016-12-10] MEDS: POTASSIUM CHLORIDE 10MEQ 100 ML IV SCH ×2 (13:30→15:10)
[2016-12-10 14:45] VITALS: BP 114/70
[2016-12-10 18:54] VITALS: BP 110/69
[2016-12-10] MEDS ORDERED: METRONIDAZOLE 0.75% VG SCH (21:00)
[2016-12-10 23:05] VITALS: BP 109/73
[2016-12-11 03:00] VITALS: BP 87/45
[2016-12-11] MEDS: IV NORMAL SALINE 1000ML BAG 1,000 ML IV SCH (05:00)
[2016-12-11 06:38] LABS: BASO % 1 % (0-3); EOS % 1 % (0-3); HEMATOCRIT 33.6 % (36.0-47.0); HEMOGLOBIN 11.2 g/dL (12.0-15.5); LYMPH # 2.7 x10^3/uL (1.0-4.8); LYMPH % 60 % (24-48); MEAN CORPUSCULAR HEMOGLOBIN 26 pg (25-35); MEAN CORPUSCULAR HGB CONC 33 g/dL (31-37); MEAN CORPUSCULAR VOLUME 79 fL (79-100); MONO % 7 % (0-9); NEUT % 32 % (31-73); PLATELET COUNT 213 x10^3/uL (140-400); RED BLOOD COUNT 4.28 x10^6/uL (3.50-5.40); RED CELL DISTRIBUTION WIDTH 14.8 % (11.5-14.5); WHITE BLOOD COUNT 4.6 x10^3/uL (4.0-11.0)
[2016-12-11 06:52] LABS: CALCIUM 8.3 mg/dL (8.5-10.1); CREATININE 0.6 mg/dL (0.6-1.0); GFR 152.7; POTASSIUM 3.5 mmol/L (3.5-5.1)
[2016-12-11 07:00] VITALS: BP 107/68
[2016-12-11] MEDS ORDERED: METR500T PO (08:10)
[2016-12-11] MEDS: METRONIDAZOLE 500mg PREMIX 100 ML IV SCH (08:35)
--- NOTE | 2016-12-11 09:55 | PDOC ---
Provider Note Provider Note feeling much better. wants to go home. janet po. no abd pain afeb vss smiling abd soft nd nt a/p abd resolved. agree with dc home. JONATHAN SOLIMAN MD Dec 11, 2016 09:55
--- NOTE | 2016-12-11 09:56 | PDOC3 ---
Discharge Summary Visit Information Date of Admission: Dec 10, 2016 Date of Discharge: Dec 11, 2016 Final Diagnosis Problems Medical Problems: (1) Abdominal pain Status: Acute (2) Bacterial vaginosis Status: Acute Brief Hospital Course Allergies Allergies Coded Allergies Type Severity Reaction Last Updated Verified No Known Drug Allergies 12/09/16 No Vital Signs Vital Signs Date Time Temp Pulse Resp B/P Pulse Ox O2 Delivery O2 Flow Rate FiO2 12/11/16 08:00 Room Air 12/11/16 07:00 98.0 64 18 107/68 100 98.0 Lab Results Laboratory Tests Test 12/09/16 19:53 12/09/16 21:42 12/09/16 22:18 12/11/16 06:27 White Blood Count 8.9x10^3/uL (4.0-11.0) 4.6x10^3/uL (4.0-11.0) Red Blood Count 4.98x10^6/uL (3.50-5.40) 4.28x10^6/uL (3.50-5.40) Hemoglobin 12.8g/dL (12.0-15.5) 11.2g/dL (12.0-15.5) Hematocrit 39.9% (36.0-47.0) 33.6% (36.0-47.0) Mean Corpuscular Volume 80fL (79-100) 79fL (79-100) Mean Corpuscular Hemoglobin 26pg (25-35) 26pg (25-35) Mean Corpuscular Hemoglobin Concent 32g/dL (31-37) 33g/dL (31-37) Red Cell Distribution Width 14.5% (11.5-14.5) 14.8% (11.5-14.5) Platelet Count 256x10^3/uL (140-400) 213x10^3/uL (140-400) Neutrophils (%) (Auto) 89% (31-73) 32% (31-73) Lymphocytes (%) (Auto) 9% (24-48) 60% (24-48) Monocytes (%) (Auto) 2% (0-9) 7% (0-9) Eosinophils (%) (Auto) 0% (0-3) 1% (0-3) Basophils (%) (Auto) 0% (0-3) 1% (0-3) Neutrophils # (Auto) 8.0x10^3uL (1.8-7.7) 1.5x10^3uL (1.8-7.7) Lymphocytes # (Auto) 0.8x10^3/uL (1.0-4.8) 2.7x10^3/uL (1.0-4.8) Monocytes # (Auto) 0.1x10^3/uL (0.0-1.1) 0.3x10^3/uL (0.0-1.1) Eosinophils # (Auto) 0.0x10^3/uL (0.0-0.7) 0.0x10^3/uL (0.0-0.7) Basophils # (Auto) 0.0x10^3/uL (0.0-0.2) 0.0x10^3/uL (0.0-0.2) Segmented Neutrophils % 85% (35-66) Band Neutrophils % 6% (0-9) Lymphocytes % 7% (24-48) Monocytes % 2% (0-10) Platelet Estimate Adequate (ADEQUATE) Poikilocytosis Slight Sodium Level 142mmol/L (136-145) 143mmol/L (136-145) Potassium Level 3.4mmol/L (3.5-5.1) 3.5mmol/L (3.5-5.1) Chloride Level 104mmol/L (98-107) 108mmol/L (98-107) Carbon Dioxide Level 25mmol/L (21-32) 25mmol/L (21-32) Anion Gap 13 (6-14) 10 (6-14) Blood Urea Nitrogen 8mg/dL (7-20) 8mg/dL (7-20) Creatinine 0.7mg/dL (0.6-1.0) 0.6mg/dL (0.6-1.0) Estimated GFR (Cockcroft-Gault) 127.8 152.7 BUN/Creatinine Ratio 11 (6-20) Glucose Level 123mg/dL (70-99) 89mg/dL (70-99) Calcium Level 9.7mg/dL (8.5-10.1) 8.3mg/dL (8.5-10.1) Total Bilirubin 0.6mg/dL (0.2-1.0) Aspartate Amino Transf (AST/SGOT) 27U/L (15-37) Alanine Aminotransferase (ALT/SGPT) 67U/L (14-59) Alkaline Phosphatase 67U/L (46-116) Total Protein 8.4g/dL (6.4-8.2) Albumin 4.6g/dL (3.4-5.0) Albumin/Globulin Ratio 1.2 (1.0-1.7) Lipase 115U/L (73-393) Influenza Type A Antigen Negative (NEGATIVE) Influenza Type B Antigen Negative (NEGATIVE) Urine Collection Type Unknown Urine Color Yellow Urine Clarity Clear Urine pH 6.5 Urine Specific [facility] 1.025 Urine Protein Negativemg/dL (NEG-TRACE) Urine Glucose (UA) Negativemg/dL (NEG) Urine Ketones (Stick) >=80mg/dL (NEG) Urine Blood Large (NEG) Urine Nitrite Negative (NEG) Urine Bilirubin Negative (NEG) Urine Urobilinogen Dipstick 0.2mg/dL (0.2 mg/dL) Urine Leukocyte Esterase Negative (NEG) Urine RBC 11-20/HPF (0-2) Urine WBC Occ/HPF (0-4) Urine Squamous Epithelial Cells Few/LPF Urine Amorphous Sediment Present/HPF Urine Bacteria Moderate/HPF (0-FEW) Urine Mucus Mod/LPF Urine Test Negative (NEG) Laboratory Tests Test 12/11/16 06:27 White Blood Count 4.6x10^3/uL (4.0-11.0) Red Blood Count 4.28x10^6/uL (3.50-5.40) Hemoglobin 11.2g/dL (12.0-15.5) Hematocrit 33.6% (36.0-47.0) Mean Corpuscular Volume 79fL (79-100) Mean Corpuscular Hemoglobin 26pg (25-35) Mean Corpuscular Hemoglobin Concent 33g/dL (31-37) Red Cell Distribution Width 14.8% (11.5-14.5) Platelet Count 213x10^3/uL (140-400) Neutrophils (%) (Auto) 32% (31-73) Lymphocytes (%) (Auto) 60% (24-48) Monocytes (%) (Auto) 7% (0-9) Eosinophils (%) (Auto) 1% (0-3) Basophils (%) (Auto) 1% (0-3) Neutrophils # (Auto) 1.5x10^3uL (1.8-7.7) Lymphocytes # (Auto) 2.7x10^3/uL (1.0-4.8) Monocytes # (Auto) 0.3x10^3/uL (0.0-1.1) Eosinophils # (Auto) 0.0x10^3/uL (0.0-0.7) Basophils # (Auto) 0.0x10^3/uL (0.0-0.2) Sodium Level 143mmol/L (136-145) Potassium Level 3.5mmol/L (3.5-5.1) Chloride Level 108mmol/L (98-107) Carbon Dioxide Level 25mmol/L (21-32) Anion Gap 10 (6-14) Blood Urea Nitrogen 8mg/dL (7-20) Creatinine 0.6mg/dL (0.6-1.0) Estimated GFR (Cockcroft-Gault) 152.7 Glucose Level 89mg/dL (70-99) Calcium Level 8.3mg/dL (8.5-10.1) Brief Hospital Course Ms. Duval is a 21 old [sex] who presented with [ ]21 y.o AA female, no past medical, acute onset lower abd pain and also motions to her R side, though she was having her period, never happened before. Accompanied by emesis, no fevers, no change in BM CT and US shows non full visualization of appendix but could be early appy? ALso clue cells on UA...or vag swab?, asymptomatic, no pruritus, dysuria GS consulted PAin more tolerable HAs been NPO LAst pain med was 7 hrs ago Stayd overnight, seen by GS, better abd pain, normal WBC, normal scans- unlikely Appy Cleared to dc today I have provided RX for flagyl for bacterial vaginosis Advised for signs of appy - urgent care if any worse, she understands Dw GS and pt and RN DispO; home Pt seen and examined Discharge Information Condition at Discharge: Improved, Stable Follow Up: Weeks (GS or urgent care if worse) Disposition/Orders: D/C to Home RDA CONTRERAS MD 10, 2017 09:56
[2016-12-11 10:46] VITALS: BP 114/65
== END 2016-12-11 11:08 | disposition home or self-care (01) | DRG 759 ==
LOC: ER 19:42 → 5 SOUTH 12-10 02:41
PROVIDERS: ADMIT Internal Medicine; ATTEND Internal Medicine
DX: N76.0 Acute vaginitis (principal); R11.10 Vomiting, unspecified; Z60.2 Problems related to living alone; R19.7 Diarrhea, unspecified; R10.9 Unspecified abdominal pain
CPT/HCPCS: 36415; 74177; 76705; 80048; 80053; 81001; 81025; 83690; 85007; 85027; 87086; 87186; 87491; 87591; 87804; 96361; 96374; 96375; J2270; J2405; J3010; J3480; J3490; J7030; Q0111; Q9967; 99285-25

== ENCOUNTER 2017-03-10 17:31 | Emergency (ER) | payer SELFPAY ==
[~2017-03-10] VITALS: Ht 157.5 cm; Wt 56.7 kg
[~2017-03-10 17:31] MED LIST: METR500T PO
[2017-03-10 18:33] VITALS: BP 114/65
[2017-03-10 19:30] LABS: BASO % 1 % (0-3); EOS % 1 % (0-3); HEMATOCRIT 38.5 % (36.0-47.0); HEMOGLOBIN 12.4 g/dL (12.0-15.5); LYMPH # 1.5 x10^3/uL (1.0-4.8); LYMPH % 36 % (24-48); MEAN CORPUSCULAR HEMOGLOBIN 26 pg (25-35); MEAN CORPUSCULAR HGB CONC 32 g/dL (31-37); MEAN CORPUSCULAR VOLUME 80 fL (79-100); MONO % 6 % (0-9); NEUT % 57 % (31-73); PLATELET COUNT 191 x10^3/uL (140-400); RED CELL DISTRIBUTION WIDTH 14.6 % (11.5-14.5); WHITE BLOOD COUNT 4.2 x10^3/uL (4.0-11.0)
[2017-03-10] MEDS ORDERED: IV NORMAL SALINE 1000ML BAG 1,000 ML IV ONE (19:30)
[2017-03-10] MEDS ORDERED: METOCLOPRAMIDE HCL 10 MG/2 ML VIAL. IV ONE (19:30)
[2017-03-10] MEDS ORDERED: fentaNYL PF VIAL 100 MCG/2 ML VIAL IV ONE (19:30)
[2017-03-10 19:31] LABS: BILIRUBIN,URINE SMALL (NEG); GLUCOSE,URINE NEGATIVE (NEG); NITRITE,URINE NEGATIVE (NEG); PH,URINE 6.5; PROTEIN,URINE 100 mg/dL (NEG-TRACE)
--- NOTE | 2017-03-10 19:31 | PHYS DOC ---
Past Medical History Past Medical History: No Pertinent History Past Surgical History: No Surgical History Alcohol Use: None Drug Use: None Adult General Chief Complaint Chief Complaint: NAUSEA/VOMITING/DIARRHA HPI HPI Patient is a 21 year old F who presents with abdominal pain for the past 2 days with associated nausea and vomiting and no diarrhea. Patient denies any fevers. Patient states abdominal pain is in the right upper and lower quadrant. Patient denies . Patient denies any chest pain or shortness of breath. Patient has no other complaints. Pertinent exam findings: Positive tenderness palpation right upper quadrant and right lower quadrant with bowel sounds heard in all 4 quadrants ED course: Patient was seen and examined CBC, CMP, lipase, printed test, CT of abdomen and pelvis were ordered 2113: H is was reexamined and updated on CT results and lab results and she was feeling much better. Discussed discharge the patient and the plan to follow-up with PCP for further evaluation and management. Patient is comfortable being discharged home. Pertinent results: CT scan of the abdomen pelvis with contrast NAD UA was negative CBC negative CMP negative MDM: After reviewing the chart, CC/HPI/PMH, physical exam, [lab results], [ radiological results], do not believe the patient has intra-abdominal emergency warranting further workup and/or admission at this time. On reexamination the patient's pain has improved and she feels comfortable going home. Recommended follow-up with PCP in one to 2 days. Patient is stable for discharge. Additional verbal discharge instructions were provided to the patient and that if symptoms get worse or any new symptoms arise that are worrisome to the patient she is to return to the emergency room immediately Review of Systems Review of Systems GEN: Denies fevers, chills, sweats HEENT: Denies blurred vision, sore throat CV: Denies chest pain RESP: Denies shortness of air, cough GI: Abdominal pain with nausea and vomiting NEURO: Denies confusion, dizziness MSK: Denies weakness, joint pain/swelling Current Medications Current Medications Current Medications Medications (Trade) Dose Ordered Sig/Tala Start Time Stop Time Status Last Admin Dose Admin Fentanyl Citrate (Fentanyl 2ml Vial) 50 mcg 1X ONCE 03/10/17 19:30 03/10/17 19:31 DC 03/10/17 19:37 50 MCG Iohexol (Omnipaque 300 Mg/ml) 75 ml 1X ONCE 03/10/17 19:45 03/10/17 19:46 DC 03/10/17 19:45 75 ML Metoclopramide HCl (Reglan) 10 mg 1X ONCE 03/10/17 19:30 03/10/17 19:31 DC 03/10/17 19:37 10 MG Sodium Chloride 1,000 ml @ 1,000 mls/hr 1X ONCE 03/10/17 19:30 03/10/17 20:29 DC 03/10/17 19:37 1,000 MLS/HR Allergies Allergies Allergies Coded Allergies Type Severity Reaction Last Updated Verified No Known Drug Allergies 12/09/16 No Physical Exam Physical Exam GEN.: No apparent distress. Alert and oriented. HEENT: Head is normocephalic, atraumatic NECK: Supple. LUNGS: CTAB. HEART: RRR, S1, S2 present. Peripheral pulses intact ABDOMEN: Soft, Positive tenderness palpation right upper quadrant and right lower quadrant with bowel sounds heard in all 4 quadrants EXTREMITIES: Without any cyanosis. NEUROLOGIC: Normal speech, normal tone PSYCHIATRIC: Normal affect, normal mood. SKIN: No ulcerations Current Patient Data Vital Signs Vital Signs Date Time Temp Pulse Resp B/P (MAP) Pulse Ox O2 Delivery O2 Flow Rate FiO2 03/10/17 19:37 18 03/10/17 18:33 98.1 66 114/65 (81) 100 Room Air 98.1 Lab Values Laboratory Tests Test 03/10/17 17:39 03/10/17 18:30 03/10/17 18:42 POC Urine HCG, Qualitative Hcg negative (Negative) Urine Collection Type Unknown Urine Color Red Urine Clarity Cloudy Urine pH 6.5 Urine Specific [facility] >=1.030 Urine Protein 100 mg/dL (NEG-TRACE) Urine Glucose (UA) Negative mg/dL (NEG) Urine Ketones (Stick) Trace mg/dL (NEG) Urine Blood Large (NEG) Urine Nitrite Negative (NEG) Urine Bilirubin Small (NEG) Urine Urobilinogen Dipstick 1.0 mg/dL (0.2 mg/dL) Urine Leukocyte Esterase Small (NEG) Urine RBC Tntc /HPF (0-2) Urine WBC 11-20 /HPF (0-4) Urine Squamous Epithelial Cells Mod /LPF Urine Bacteria Few /HPF (0-FEW) Urine Mucus Marked /LPF White Blood Count 4.2 x10^3/uL (4.0-11.0) Red Blood Count 4.80 x10^6/uL (3.50-5.40) Hemoglobin 12.4 g/dL (12.0-15.5) Hematocrit 38.5 % (36.0-47.0) Mean Corpuscular Volume 80 fL (79-100) Mean Corpuscular Hemoglobin 26 pg (25-35) Mean Corpuscular Hemoglobin Concent 32 g/dL (31-37) Red Cell Distribution Width 14.6 % (11.5-14.5) H Platelet Count 191 x10^3/uL (140-400) Neutrophils (%) (Auto) 57 % (31-73) Lymphocytes (%) (Auto) 36 % (24-48) Monocytes (%) (Auto) 6 % (0-9) Eosinophils (%) (Auto) 1 % (0-3) Basophils (%) (Auto) 1 % (0-3) Neutrophils # (Auto) 2.4 x10^3uL (1.8-7.7) Lymphocytes # (Auto) 1.5 x10^3/uL (1.0-4.8) Monocytes # (Auto) 0.2 x10^3/uL (0.0-1.1) Eosinophils # (Auto) 0.0 x10^3/uL (0.0-0.7) Basophils # (Auto) 0.0 x10^3/uL (0.0-0.2) Sodium Level 141 mmol/L (136-145) Potassium Level 3.6 mmol/L (3.5-5.1) Chloride Level 104 mmol/L (98-107) Carbon Dioxide Level 28 mmol/L (21-32) Anion Gap 9 (6-14) Blood Urea Nitrogen 7 mg/dL (7-20) Creatinine 0.7 mg/dL (0.6-1.0) Estimated GFR (Cockcroft-Gault) 127.8 BUN/Creatinine Ratio 10 (6-20) Glucose Level 85 mg/dL (70-99) Calcium Level 9.0 mg/dL (8.5-10.1) Total Bilirubin 0.5 mg/dL (0.2-1.0) Aspartate Amino Transferase (AST) 20 U/L (15-37) Alanine Aminotransferase (ALT) 26 U/L (14-59) Alkaline Phosphatase 64 U/L (46-116) Total Protein 7.4 g/dL (6.4-8.2) Albumin 4.2 g/dL (3.4-5.0) Albumin/Globulin Ratio 1.3 (1.0-1.7) Lipase 83 U/L (73-393) Laboratory Tests 03/10/17 18:42 Laboratory Tests 03/10/17 18:42 EKG EKG [] Radiology/Procedures Radiology/Procedures CT scan abdomen and pelvis NAD [] Course & Med Decision Making Course & Med Decision Making Pertinent Labs and Imaging studies reviewed. (See chart for details) [] Dragon Disclaimer Dragon Disclaimer This electronic medical record was generated, in whole or in part, using a voice recognition dictation system. Departure Departure Impression: Primary Impression: Abdominal pain Disposition: 01 HOME, SELF-CARE Condition: IMPROVED Referrals: NO PCP (PCP) Patient Instructions: Abdominal Pain (Nonspecific) Additional Instructions: Recommend follow-up with her family doctor in one to days and return symptoms increase Problem Qualifiers Primary Impression: Abdominal pain Abdominal location: generalized Qualified Codes: R10.84 - Generalized abdominal pain BONNIE DURAN DO Mar 10, 2017 19:31
[2017-03-10 19:40] LABS: CREATININE 0.7 mg/dL (0.6-1.0); GFR 127.8; POTASSIUM 3.6 mmol/L (3.5-5.1)
[2017-03-10] MEDS ORDERED: IOHEXOL 300 MG/ML 75 ML VIAL IV ONE (19:45)
[2017-03-10 19:46] LABS: ALBUMIN 4.2 g/dL (3.4-5.0); ALBUMIN/GLOBULIN RATIO 1.3 (1.0-1.7); TOTAL BILIRUBIN 0.5 mg/dL (0.2-1.0); TOTAL PROTEIN 7.4 g/dL (6.4-8.2)
[2017-03-10 19:54] LABS: RBC,URINE TNTC /HPF (0-2)
[2017-03-10 19:55] LABS: BACTERIA,URINE FEW /HPF (0-FEW); SQUAMOUS EPITHELIAL CELL,UR MOD /LPF
--- NOTE | 2017-03-10 20:54 | RAD ---
Exam performed: CT scan of the abdomen and pelvis with contrast Clinical Indication: Abdominal pain with nausea and vomiting today Date of Service: 03/10/2017 comparison: CT abdomen and pelvis from 12/20/2016 Technique: Contiguous helical acquisitions are obtained from the lung bases to the pelvis during intravenous administration of [75 cc of Omnipaque 300]. Sagittal and coronal reformatted images were obtained and reviewed. CT abdomen findings: The lung bases appear essentially clear. Heart size is normal. The liver, spleen ,gall bladder and pancreas appears unremarkable. Both adrenal glands and bilateral kidneys appear normal with symmetric excretion of contrast via both kidneys. Unopacified small bowel loops appear nondilated and unremarkable. Aorta is normal in caliber. There is no retroperitoneal lymphadenopathy or mass lesions. No bowel related inflammatory stranding is noted. Appendix is not clearly seen. No obvious stranding is seen in the pericecal region. CT pelvis findings: The pelvic bowel loops are nondilated and unremarkable. The urinary bladder is well distended and normal . Uterus is anteverted, and maxillary. Interrogation of bone windows demonstrates no obvious bony abnormality. Sagittal and coronal reformatted images were obtained and reviewed which demonstrate no additional findings. Impression abdomen and pelvis : 1. No acute intra-abdominal or pelvic process is detected. 2. Appendix is not identified PQRS Compliance Statement: One or more of the following individualized dose reduction techniques were utilized for this examination: 1. Automated exposure control 2. Adjustment of the mA and/or kV according to patient size 3. Use of iterative reconstruction technique Electronically signed by: Sridevi Uribe MD (03/10/2017 8:50 PM)
--- NOTE | 2017-03-13 09:10 | VNOTE ---
CALL BACK NOTE CALL BACK Microbiology 03/10/17 Urine Culture - Final, Complete 03/10/17 Urine Culture Result 1 (ALMA[facility]) - Final, Complete Patient's urine culture came back positive for strep staff. Patient was not treated with any antibiotics. Attempted to contact patient via phone with the number left with registration. Message was left for the patient to return my call. [place] BEST APRN Mar 13, 2017 09:10
--- NOTE | 2017-03-15 16:26 | VNOTE ---
CALL BACK NOTE CALL BACK Microbiology 03/10/17 Urine Culture - Final, Complete 03/10/17 Urine Culture Result 1 (ALMA[facility]) - Final, Complete Able to contact patient via second phone call. Patient will be sent a certified letter in regards to the results of her urine culture. ALB[place] BEST APRN Mar 15, 2017 16:26
== END 2017-03-10 21:40 | disposition home or self-care (01) ==
LOC: ER 17:31
DX: R10.84 Generalized abdominal pain (principal); R11.2 Nausea with vomiting, unspecified
CPT/HCPCS: 36415; 74177; 80053; 81001; 81025; 83690; 85027; 87086; 96361; 96374; 96375; 99285; J2765; J3010; J7030; Q9967